=== PATIENT | female | born 1985 | race Caucasian/White ===

== ENCOUNTER 2020-02-05 00:44 | Emergency (ER) | payer OTHER ==
[~2020-02-05] VITALS: Ht 175.3 cm; Wt 59.0 kg
[~2020-02-05 00:44] MED LIST: DOXYCYCLINE 10100 MG PO; ELIMITE60 GM TP; FLAGYL500 MG; IRON256 MG PO; KEFLEX500 MG; NOHOMEMEDICATIONS; NORCO 5-325 TA1 EACH PO; PENICILLIN VK500 MG PO; PREDNISONE50 MG PO; PRENATAL PO; TYLENOL W/CODEI1 TA2 PO
[2020-02-05] MEDS ORDERED: SENNA-DOCUSATE1 EAC1 PO (05:28)
[2020-02-05] MEDS ORDERED: NORCO 5-325 TA1 EAC2 PO (05:28)
[2020-02-05] MEDS ORDERED: IBUPROFEN 600600 M1 PO (05:28)
[2020-02-05 05:53] VITALS: BP 129/85
== END 2020-02-05 06:13 | disposition home or self-care (01) ==
LOC: ER 00:44
DX: S01.01XA Laceration without foreign body of scalp, initial encounter (principal); S20.419A Abrasion of unspecified back wall of thorax, initial encounter; T74.21XA Adult sexual abuse, confirmed, initial encounter; Z79.899 Other long term (current) drug therapy